=== PATIENT | female | born 1980 | race Caucasian/White ===

== ENCOUNTER 2017-08-06 09:08 | Emergency (ER) | payer OTHER ==
--- NOTE | 2017-08-06 09:36 | ER Document Report ---
ED Medical Screen (RME) - General Chief Complaint: Irregular Pulse Stated Complaint: TUNNEL VISION Time Seen by Provider: 08/06/17 09:28 Notes: pt has near syncope/palp. pulse and heart exam are remarkable for irreg rhythm. pt taken to monitored room. TRAVEL OUTSIDE OF THE [place] IN LAST 30 DAYS: No - Related Data Allergies/Adverse Reactions: No Known Allergies Allergy (Verified 12/24/16 11:33) Past Medical History - Social History Chew tobacco use (# tins/day): No Frequency of alcohol use: None Drug Abuse: None - Past Medical History Cardiac Medical History: Denies: Hx Heart Attack, Hx Hypertension Pulmonary Medical History: Denies: Hx Asthma, Hx Tuberculosis Neurological Medical History: Denies: Hx Cerebrovascular Accident, Hx Seizures Renal/ Medical History: Denies: Hx Peritoneal Dialysis GI Medical History: Denies: Hx Hepatitis, Hx Hiatal Hernia, Hx Ulcer Musculoskeltal Medical History: Infectious Medical History: Denies: Hx Hepatitis Past Surgical History: Denies: Hx Hysterectomy, Hx Mastectomy, Hx Open Heart Surgery, Hx Pacemaker - Immunizations Hx Diphtheria, Pertussis, Tetanus Vaccination: Yes Physical Exam - Vital signs Vitals: Temp Pulse Resp BP Pulse Ox 98.8 F 71 15 130/97 H 96 08/06/17 09:16 08/06/17 09:16 08/06/17 09:16 08/06/17 09:16 08/06/17 09:16 Course - Vital Signs Vital signs: Temp Pulse Resp BP Pulse Ox 98.8 F 71 15 130/97 H 96 08/06/17 09:16 08/06/17 09:16 08/06/17 09:16 08/06/17 09:16 08/06/17 09:16
[2017-08-06 10:29] LABS: ABSOLUTE BASOPHILS # (AUTO) 0.1 10^3/uL (0.0-0.2); ABSOLUTE EOSINOPHILS # (AUTO) 0.5 10^3/uL (0.0-0.6); ABSOLUTE MONOCYTES (AUTO) 0.9 10^3/uL (0.1-1.4); ABSOLUTE NEUT (AUTO) 4.5 10^3/uL (1.7-8.2); BASOPHILS % (AUTO) 0.9 % (0-2); EOSINOPHILS % (AUTO) 5.3 % (0-6); HEMATOCRIT 40.5 % (36.0-47.0); HGB HCT DIFFERENCE 1.5; LYMPHOCYTES % (AUTO) 33.4 % (13-45); MEAN CORPUSCULAR HEMOGLOBIN 28.4 pg (27.0-33.4); MEAN CORPUSCULAR HGB CONC 34.7 g/dL (32.0-36.0); MEAN CORPUSCULAR VOLUME 82 fl (80-97); MONOCYTES % (AUTO) 9.6 % (3-13); RED BLOOD COUNT 4.93 10^6/uL (3.72-5.28); RED CELL DISTRIBUTION WIDTH 13.4 % (11.5-14.0); SEGMENTED NEUTROPHILS % (AUTO) 50.8 % (42-78)
[2017-08-06 10:44] LABS: APPEARANCE,URINE SLIGHTLY-CLOUDY; BILIRUBIN,URINE NEGATIVE (NEGATIVE); GLUCOSE, URINE NEGATIVE (NEGATIVE); KETONES,URINE NEGATIVE (NEGATIVE); LEUKOCYTE ESTERASE,URINE SMALL (NEGATIVE); NITRITE,URINE NEGATIVE (NEGATIVE); PROTEIN,URINE NEGATIVE (NEGATIVE); URINE SPECIFIC GRAVITY 1.018; UROBILINOGEN,URINE NEGATIVE mg/dL (<2.0)
[2017-08-06 10:55] LABS: URINE BARBITURATES SCREEN NEGATIVE; URINE METHADONE SCREEN NEGATIVE; URINE OPIATES LOW NEGATIVE; URINE PHENCYCLIDINE SCREEN NEGATIVE
[2017-08-06] MEDS ORDERED: LIDOCAINE HCL/D5W/PF 2,000 MG/250 ML RTUINJ IV ONE (11:11)
[2017-08-06 11:13] LABS: ALANINE AMINOTRANSFERASE 35 U/L (9-52); ALBUMIN 3.9 g/dL (3.5-5.0); ALKALINE PHOSPHATASE 62 U/L (38-126); ANION GAP 11 (5-19); ASPARTATE AMINO TRANSFERASE 23 U/L (14-36); BILIRUBIN,DIRECT 0.2 mg/dL (0.0-0.4); BILIRUBIN,TOTAL 0.7 mg/dL (0.2-1.3); BLOOD UREA NITROGEN 16 mg/dL (7-20); CALCIUM 9.7 mg/dL (8.4-10.2); CARBON DIOXIDE 25 mmol/L (22-30); CHLORIDE 106 mmol/L (98-107); CREATININE RESULT 0.71 mg/dL (0.52-1.25); GLUCOSE 88 mg/dL (75-110); POTASSIUM 4.4 mmol/L (3.6-5.0); SODIUM 141.7 mmol/L (137-145); TOTAL PROTEIN 6.6 g/dL (6.3-8.2)
[2017-08-06] MEDS: LIDOCAINE IV PRN ×2 (11:27→11:28)
[2017-08-06] MEDS: DEXTROSE IV PRN ×2 (11:27→11:28)
--- NOTE | 2017-08-06 11:32 | RADIOLOGY REPORT (SQ) ---
EXAM DESCRIPTION: CHEST SINGLE VIEW COMPLETED DATE/TIME: 08/06/2017 11:24 am REASON FOR STUDY: cp COMPARISON: None. EXAM PARAMETERS: NUMBER OF VIEWS: One view. TECHNIQUE: Single frontal radiographic view of the chest acquired. RADIATION DOSE: NA LIMITATIONS: None. FINDINGS: LUNGS AND PLEURA: No opacities, masses or pneumothorax. No pleural effusion. MEDIASTINUM AND HILAR STRUCTURES: No masses. Contour normal. HEART AND VASCULAR STRUCTURES: Heart normal in size. Normal vasculature. BONES: No acute findings. HARDWARE: Defibrillator pads over the chest. OTHER: No other significant finding. IMPRESSION: NO ACUTE RADIOGRAPHIC FINDING IN THE CHEST. TECHNICAL DOCUMENTATION: JOB ID: [id number]
[2017-08-06 11:44] LABS: THYROID STIMULATING HORMONE 2.3 uIU/mL (0.47-4.68)
[2017-08-06 12:28] VITALS: BP 118/88
--- NOTE | 2017-08-06 14:18 | ER Document Report ---
ED General - General Chief Complaint: Irregular Pulse Stated Complaint: TUNNEL VISION Time Seen by Provider: 08/06/17 09:28 TRAVEL OUTSIDE OF THE [place] IN LAST 30 DAYS: No - HPI Patient complains to provider of: Near syncope with palpitations Notes: Patient states 24 hour period of multiple episodes of near syncope with palpitations. Patient states no medical issues denies any pain denies any fevers chills nausea vomiting diarrhea. Patient denies any recent travel recent antibiotics. Patient states varying times of these episodes and varying duration. Patient is unaware of any exacerbating factors. Patient states spontaneously occur and relieve . - Related Data Allergies/Adverse Reactions: No Known Allergies Allergy (Verified 12/24/16 11:33) Home Medications: Current Home Medications No Home Medications 08/06/17 [History] Past Medical History - Social History Smoking Status: Never Smoker Chew tobacco use (# tins/day): No Frequency of alcohol use: None Drug Abuse: None Family History: None Patient has suicidal ideation: No Patient has homicidal ideation: No - Past Medical History Cardiac Medical History: Denies: Hx Heart Attack, Hx Hypertension Pulmonary Medical History: Denies: Hx Asthma, Hx Tuberculosis Neurological Medical History: Denies: Hx Cerebrovascular Accident, Hx Seizures Renal/ Medical History: Denies: Hx Peritoneal Dialysis GI Medical History: Denies: Hx Hepatitis, Hx Hiatal Hernia, Hx Ulcer Musculoskeltal Medical History: Infectious Medical History: Denies: Hx Hepatitis Past Surgical History: Denies: Hx Hysterectomy, Hx Mastectomy, Hx Open Heart Surgery, Hx Pacemaker - Immunizations Hx Diphtheria, Pertussis, Tetanus Vaccination: Yes Review of Systems - Review of Systems Constitutional: No symptoms reported EENT: No symptoms reported Cardiovascular: Palpitations, Syncope Respiratory: No symptoms reported Gastrointestinal: No symptoms reported Genitourinary: No symptoms reported Female Genitourinary: No symptoms reported Musculoskeletal: No symptoms reported Skin: No symptoms reported Hematologic/Lymphatic: No symptoms reported Neurological/Psychological: No symptoms reported -: Yes All other systems reviewed and negative Physical Exam - Vital signs Vitals: Temp Pulse Resp BP Pulse Ox 98.8 F 71 15 130/97 H 96 08/06/17 09:16 08/06/17 09:16 08/06/17 09:16 08/06/17 09:16 08/06/17 09:16 Interpretation: Normal - General General appearance: Appears well, Alert - HEENT Head: Normocephalic, Atraumatic Eyes: Normal Pupils: PERRL - Respiratory Respiratory status: No respiratory distress Chest status: Nontender Breath sounds: Normal Chest palpation: Normal - Cardiovascular Rhythm: Regular Heart sounds: Normal auscultation Murmur: No - Abdominal Inspection: Normal Distension: No distension Bowel sounds: Normal Tenderness: Nontender Organomegaly: No organomegaly - Back Back: Normal, Nontender - Extremities General upper extremity: Normal inspection, Nontender, Normal color, Normal ROM , Normal temperature General lower extremity: Normal inspection, Nontender, Normal color, Normal ROM , Normal temperature, Normal weight bearing. No: Erma's sign - Neurological Neuro grossly intact: Yes Cognition: Normal Orientation: AAOx4 Meryl Coma Scale Eye Opening: Spontaneous Villalba Coma Scale Verbal: Oriented Meryl Coma Scale Motor: Obeys Commands Meryl Coma Scale Total: 15 Speech: Normal Motor strength normal: LUE, RUE, LLE, RLE Sensory: Normal - Psychological Associated symptoms: Normal affect, Normal mood - Skin Skin Temperature: Warm Skin Moisture: Dry Skin Color: Normal Course - Re-evaluation Re-evalutation: 08/06/17 14:16 During evaluation here in ER patient had 30 sec run of ventricular tachycardia with symptoms of near syncope. Unfortunately this was unable to be captured on a EKG. Some occult on the monitor. Patient's initial EKG only showed random PVCs. Patient was placed on a lidocaine drip 1 mg/kg however prior to having a drip started patient had 2 more episodes of ventricular tachycardia. Consult our cardiology team who did eventually come down bedside and evaluate the patient however recommend transfer called [facility] however both are full and able to start the patient at this time discussed with Dr. Mccarty at violent of the cardiology team agreed to set the patient in transfer. Patient otherwise has been stable at this time laboratory findings did not show any reversible cause of arrhythmia. We will continue to monitor little time at transport. 08/06/17 15:01 Stable for transfer at this time no further episodes of ventricular tachycardia - Vital Signs Vital signs: Temp Pulse Resp BP Pulse Ox 98.8 F 71 15 118/88 H 99 08/06/17 09:16 08/06/17 09:16 08/06/17 14:15 08/06/17 14:15 08/06/17 14:15 - Laboratory Result Diagrams: 08/06/17 10:05 08/06/17 10:40 Laboratory results interpreted by me: 08/06/17 10:20 Ur Leukocyte Esterase SMALL H Critical Care Note - Critical Care Note Total time excluding time spent on procedures (mins): 60 Comments: Multiple evaluation for patient with ventricular tachycardia Discharge - Discharge Clinical Impression: Nonsustained ventricular tachycardia Syncope Qualifiers: Syncope type: unspecified Qualified Code(s): R55 - Syncope and collapse Condition: Good Disposition: [facility]
--- NOTE | 2017-08-06 22:22 | PDOC CONSULTATION ---
Consultation Consult Date: 08/06/17 Attending physician:: HARMAN BREWSTER Consult reason:: Ventricular tachycardia History of Present Illness Admission Date/PCP: Consultation for August 06, 2017 Patient complains of: Near syncope and palpitations History of Present Illness: ALBINA LICEA is a 37 year old female states 24 hour period of multiple episodes of near syncope with palpitations. Patient states no medical issues denies any pain denies any fevers chills nausea vomiting diarrhea. Patient denies any recent travel recent antibiotics. Patient states varying times of these episodes and varying duration. Patient is unaware of any exacerbating factors. Patient states spontaneously occur and relieve. Patient denied any prior history of sustained palpitations, syncope, near syncope. Patient denied any family history of premature coronary artery disease or sudden cardiac . Patient denied any illicit drug abuse nor smoking. Patient has been somewhat overworked. She does sleep poorly and does have a history of snoring. She has some daytime fatigue and tiredness.. Past Medical History Cardiac Medical History: Denies: Myocardial Infarction, Hypertension Pulmonary Medical History: Denies: Asthma, Tuberculosis Neurological Medical History: Denies: Seizures GI Medical History: Denies: Hepatitis, Hiatal Hernia Musculoskeltal Medical History: Hematology: Denies: Anemia, Sickle Cell Disease Past Surgical History Past Surgical History: Denies: Amputation, Hysterectomy, Mastectomy, Pacemaker Social History Information Source: Patient Smoking Status: Never Smoker Hx Recreational Drug Use: No Hx Prescription Drug Abuse: No - Advance Directive Resuscitation Status: Full Code Surrogate healthcare decision maker:: Patient's Family History Family History: None Parental Family History Reviewed: Yes Children Family History Reviewed: Yes Sibling(s) Family History Reviewed.: Yes - Negative for premature coronary artery disease or sudden cardiac in the family amongst first degree relatives. Medication/Allergy Home Medications: No Home Medications 08/06/17 Allergies/Adverse Reactions: No Known Allergies Allergy (Verified 12/24/16 11:33) Review of Systems Review of Systems: Please see history of present illness and past medical history as wall. Constitutional: No fever or chills reported. Head : No recent chronic headaches, recent head injury. Eyes: No recent eye pain, diplopia, redness, discharge, acute visual changes. Ears: No recent chronic ear pain, acute hearing loss, ear discharge. Oral cavity: No recent ulcerations, bleeding, oral cavity discomfort. Neck: No recent acute neck pain reported. Hematologic: No recent easy bruising or bleeding or hematologic malignancy reported. Lymphatic: No recent lymphatic malignancy, chronic lymphadenopathy reported yet Cardiovascular system review: See history of present illness. Respiratory system review: No recent chronic cough, hemoptysis, blood clots in the lungs reported. Mild Shortness of breath on exertion Gastrointestinal system review: Negative for any recent acute or chronic abdominal pain, hematemesis, melena, recent change in bowel habits. Genitourinary system review: No recent acute or chronic hematuria, flank pain, UTI etc. reported. Skin system review: Negative for any recent abnormal bruising, no rash, no pruritus reported. Neurologic: No prior history of strokes, mini strokes, seizure disorder. Psychologic: No history of major psychosis or major depression reported. Musculoskeletal: Minor aches and pains reported. No acute joint swelling reported. Endocrine: No recent polyuria, polydipsia, recent heat or cold intolerance. Patient does have history of snoring Physical Exam Vital Signs: Temp Pulse Resp BP Pulse Ox 98.8 F 71 15 118/88 H 99 08/06/17 09:16 08/06/17 09:16 08/06/17 14:15 08/06/17 14:15 08/06/17 14:15 Intake & Output 08/05/17 08/06/17 08/07/17 06:59 06:59 06:59 Weight 96.2 kg Exam: GENERAL: well-nourished and in no acute distress. Alert and oriented x3 HEAD: Atraumatic, normocephalic. EYES: Pupils equal round and reactive to light, extraocular movements intact, sclera anicteric, conjunctiva are normal. ENT: TMs normal, nares patent, oropharynx clear without exudates. Moist mucous membranes. No oral ulcerations or bleeding gums noted NECK: supple without lymphadenopathy. Trachea is central. No cervical or axillary lymphadenopathy noted. Carotids are 2+, JVD WNL LUNGS: Respiration seems nonlabored, no significant accessory muscle action noted. Breath sounds clear to auscultation bilaterally and equal noted. No wheezes rales or rhonchi noted. No significant dullness noted on percussion. CHEST: Palpation of the chest wall shows no significant chest wall tenderness. No other significant abnormalities noted. 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 ABDOMEN: Soft, no significant tenderness appreciated, normoactive bowel sounds. No guarding, no rebound. No rigidity noted . No masses appreciated. EXTREMITIES: Pedal pulses are 1-2+, no calf tenderness noted. No clubbing or cyanosis.trace to 1+ pedal edema noted NEUROLOGICAL: Focused neurological exam showed no significant neurologic deficit. Normal speech, no focal weakness appreciated. PSYCH: Normal mood, normal affect. Judgment and insight within normal limits. SKIN: No significant ecchymosis, rash, ulcerations or signs of pruritus noted. MUSCULOSKELETAL EXAM: No significant joint swelling noted. Results Laboratory Results: 08/06/17 10:05 08/06/17 10:40 08/06/17 08/06/17 08/06/17 10:05 10:05 10:05 WBC 9.0 RBC 4.93 Hgb 14.0 Hct 40.5 MCV 82 MCH 28.4 MCHC 34.7 RDW 13.4 Plt Count 244 Seg Neutrophils % 50.8 Lymphocytes % 33.4 Monocytes % 9.6 Eosinophils % 5.3 Basophils % 0.9 Absolute Neutrophils 4.5 Absolute Lymphocytes 3.0 Absolute Monocytes 0.9 Absolute Eosinophils 0.5 Absolute Basophils 0.1 Sodium Cancelled Potassium Cancelled Chloride Cancelled Carbon Dioxide Cancelled Anion Gap Cancelled BUN Cancelled Creatinine Cancelled Est GFR ( Amer) Cancelled Est GFR (Non-Af Amer) Cancelled Glucose Cancelled Calcium Cancelled Magnesium Cancelled Total Bilirubin Cancelled AST Cancelled ALT Cancelled Alkaline Phosphatase Cancelled Total Protein Cancelled Albumin Cancelled TSH Cancelled Free T4 Cancelled Urine Color Urine Appearance Urine pH Ur Specific [place] Urine Protein Urine Glucose (UA) Urine Ketones Urine Blood Urine Nitrite Ur Leukocyte Esterase Urine WBC (Auto) Urine RBC (Auto) 08/06/17 08/06/17 08/06/17 10:20 10:40 10:40 WBC RBC Hgb Hct MCV MCH MCHC RDW Plt Count Seg Neutrophils % Lymphocytes % Monocytes % Eosinophils % Basophils % Absolute Neutrophils Absolute Lymphocytes Absolute Monocytes Absolute Eosinophils Absolute Basophils Sodium 141.7 Potassium 4.4 Chloride 106 Carbon Dioxide 25 Anion Gap 11 BUN 16 Creatinine 0.71 Est GFR ( Amer) > 60 Est GFR (Non-Af Amer) > 60 Glucose 88 Calcium 9.7 Magnesium 2.0 Total Bilirubin 0.7 AST 23 ALT 35 Alkaline Phosphatase 62 Total Protein 6.6 Albumin 3.9 TSH 2.30 Free T4 0.97 Urine Color YELLOW Urine Appearance SLIGHTLY-CLOUDY Urine pH 7.0 Ur Specific [place] 1.018 Urine Protein NEGATIVE Urine Glucose (UA) NEGATIVE Urine Ketones NEGATIVE Urine Blood NEGATIVE Urine Nitrite NEGATIVE Ur Leukocyte Esterase SMALL H Urine WBC (Auto) 1 Urine RBC (Auto) 2 08/06/17 10:05 Troponin I < 0.012 EKG Comments: Telemetry strips noted showed wide-complex tachycardia, most consistent with ventricular tachycardia. Twelve-lead EKG shows sinus rhythm, no acute ST-T wave changes noted. No delta wave or epsilon waves noted. No evidence of Brugada syndrome Impressions: Chest X-Ray 08/06/17 11:08 IMPRESSION: NO ACUTE RADIOGRAPHIC FINDING IN THE CHEST. Assessment & Plan - Diagnosis (1) Nonsustained ventricular tachycardia Is this a current diagnosis for this admission?: Yes (2) Syncope Qualifiers: Syncope type: unspecified Qualified Code(s): R55 - Syncope and collapse Is this a current diagnosis for this admission?: Yes (3) Snoring Is this a current diagnosis for this admission?: Yes - Notes Notes: Ventricular tachycardia: This was associated with near syncope. Therefore by definition is sustained. Patient started on lidocaine drip which seems to have settled episodes. Discussed that based on my evaluation and EKG as well as rhythm strip, transferred to tertiary care for further evaluation and electrophysiological studies indicated. Patient on waiting list to be transferred either to [facility] or to [facility]. Syncope/near syncope: This is certainly related to ventricular tachycardia. This was noted in the ER. Patient was clearly symptomatic. Snoring discussed that underlying sleep apnea may need to be evaluated for. Discussed association of sleep apnea with cardiac dysrhythmia. - Time Time Spent: 30 to 50 Minutes - CODE STATUS was discussed, patient remains full code. Surrogate decision-maker patient's . Multiple medical problems were addressed. More than 50% of the time spent coordinating care, discussing management plans with involved caregivers. Management plans discussed with involved personnels. Medical decision making was of moderate to high complexity , patient's has multiple comorbidities. Medications reviewed and adjusted accordingly: Yes
--- NOTE | 2017-08-06 23:12 | EKG REPORT ---
SEVERITY:- NORMAL ECG - SINUS RHYTHM : Confirmed by: Michael Tony 06-Aug-2017 23:11:55
--- NOTE | 2017-08-07 09:08 | EKG REPORT ---
SEVERITY:- ABNORMAL ECG - SINUS RHYTHM VENTRICULAR TRIGEMINY : Confirmed by: Michael Tony 07-Aug-2017 09:07:20
== END 2017-08-06 15:00 | disposition short-term general hospital (02) ==
LOC: ER 09:08
DX: I47.2 Ventricular tachycardia (principal); R55 Syncope and collapse; R00.2 Palpitations
CPT/HCPCS: 93005; 99291; 36415; 84439; 84702; 83735; 84443; 85025; 80053; 81001; 84484; 80307; 85379; 71010; 93010; J2001

== ENCOUNTER 2019-03-30 07:54 | Emergency (ER) | payer OTHER ==
[2019-03-30 08:02] VITALS: BP 127/80
[2019-03-30 09:14] LABS: APPEARANCE,URINE SLIGHTLY-CLOUDY; BILIRUBIN,URINE NEGATIVE (NEGATIVE); COLOR,URINE YELLOW; GLUCOSE, URINE NEGATIVE (NEGATIVE); KETONES,URINE NEGATIVE (NEGATIVE); LEUKOCYTE ESTERASE,URINE NEGATIVE (NEGATIVE); NITRITE,URINE NEGATIVE (NEGATIVE); PROTEIN,URINE NEGATIVE (NEGATIVE); URINE SPECIFIC GRAVITY 1.024; UROBILINOGEN,URINE NEGATIVE mg/dL (<2.0)
[2019-03-30 09:15] LABS: ABSOLUTE BASOPHILS # (AUTO) 0.1 10^3/uL (0.0-0.2); ABSOLUTE EOSINOPHILS # (AUTO) 0.3 10^3/uL (0.0-0.6); ABSOLUTE LYMPHOCYTES (AUTO) 2.5 10^3/uL (0.5-4.7); ABSOLUTE MONOCYTES (AUTO) 0.5 10^3/uL (0.1-1.4); EOSINOPHILS % (AUTO) 4.8 % (0-6); HEMATOCRIT 42.2 % (36.0-47.0); HEMOGLOBIN 14.1 g/dL (12.0-15.5); LYMPHOCYTES % (AUTO) 39.1 % (13-45); MEAN CORPUSCULAR HEMOGLOBIN 27.2 pg (27.0-33.4); MEAN CORPUSCULAR HGB CONC 33.4 g/dL (32.0-36.0); MEAN CORPUSCULAR VOLUME 81 fl (80-97); MONOCYTES % (AUTO) 7.5 % (3-13); PLATELET COUNT 221 10^3/uL (150-450); RED BLOOD COUNT 5.19 10^6/uL (3.72-5.28); SEGMENTED NEUTROPHILS % (AUTO) 47.6 % (42-78); TOTAL CELLS COUNTED % (AUTO) 100 %; WHITE BLOOD COUNT 6.3 10^3/uL (4.0-10.5)
--- NOTE | 2019-03-30 09:39 | ER Document Report ---
ED General - General Chief Complaint: Abdominal Pain Stated Complaint: ARM PAIN Time Seen by Provider: 03/30/19 09:21 Primary Care Provider: [facility] [Provider Group] - Follow up in 3-5 days MERLE TALBOT FNP-C [Primary Care Provider] - Follow up as needed Notes: Patient is a 38-year-old female that presents to the emergency department for chief complaint of pelvic cramping. Patient states she started having pelvic cramping this morning, and states she feels "weird" in her lower pelvis, she has an IUD in place and thinks it may have moved or shifted, she believes that the Mirena IUD is probably been in there for 5 years or more she is not entirely sure. She denies having any bleeding or abnormal vaginal discharge. Denies any recent fevers, chills, nausea, vomiting, upper abdominal pain, dysuria, hematuria. No other complaints at this time. Patient also notes she had an episode where her left hand when holding a coffee cup got somewhat numb and weak, and improved and did not happen today, she states she still feels some numbness in her left index finger, but otherwise denies any other complaints. Denies any neck pain or injury. Past Medical History: Denies chronic medical condition Past Surgical History: Appendectomy, IUD placement Social History: Denies tobacco, alcohol or drug use. Family History: Reviewed and noncontributory for presenting illness Allergies: Reviewed, see documented allergy list. REVIEW OF SYSTEMS: Other than noted above, the 12 point review of systems was reviewed with the patient and were negative, all pertinent findings are included in the HPI. PHYSICAL EXAMINATION: Vital signs reviewed, nursing noted reviewed. GENERAL: Well-appearing, well-nourished and in no acute distress. HEAD: Atraumatic, normocephalic. EYES: Eyes appear normal, extraocular movements intact, sclera anicteric, conjunctiva are normal. ENT: nares patent, oropharynx clear without exudates. Moist mucous membranes. NECK: Normal range of motion, supple without lymphadenopathy LUNGS: Breath sounds clear to auscultation bilaterally and equal. No wheezes rales or rhonchi. HEART: Regular rate and rhythm without murmurs ABDOMEN: Soft, nontender, normoactive bowel sounds. No rebound, guarding, or rigidity. No masses appreciated. Pelvic Exam: With a strategic business development present the exam was explained to the patient and patient agreed to proceed with exam. On exam, no external lesions or abnormalities noted. Internal speculum exam demonstrated 2 IUD strings are present, the cervical os did appear somewhat erythematous, with some clear thick drainage, mild irritation to the cervix itself, patient tolerated exam well EXTREMITIES: Nontender, good range of motion, no pitting or edema. NEUROLOGICAL: Moves all extremities spontaneously, patient's muscular motor strength is +5/5 with escalator mechanic strength, abduction, abduction of the fingers, extension of the wrist, flexion of the elbow, she has somewhat decreased sensation with light touch to the second digit of the left hand, the rest of her exam is otherwise unremarkable, normal and equal sharp sensation in all digits. Equivocal Tinel sign of the left hand. The rest the patient neuro exam is unremarkable PSYCH: Normal mood, normal affect. SKIN: Warm, Dry, normal turgor, no rashes or lesions noted on exposed skin TRAVEL OUTSIDE OF THE [place] IN LAST 30 DAYS: No - Related Data Allergies/Adverse Reactions: No Known Allergies Allergy (Verified 03/30/19 07:59) Past Medical History - Social History Smoking Status: Unknown if Ever Smoked Family History: None Patient has suicidal ideation: No Patient has homicidal ideation: No - Past Medical History Cardiac Medical History: Denies: Hx Heart Attack, Hx Hypertension Pulmonary Medical History: Denies: Hx Asthma, Hx Tuberculosis Neurological Medical History: Denies: Hx Cerebrovascular Accident, Hx Seizures Renal/ Medical History: Denies: Hx Peritoneal Dialysis GI Medical History: Denies: Hx Hepatitis, Hx Hiatal Hernia, Hx Ulcer Musculoskeletal Medical History: Infectious Medical History: Denies: Hx Hepatitis Past Surgical History: Denies: Hx Hysterectomy, Hx Mastectomy, Hx Open Heart Surgery, Hx Pacemaker - Immunizations Hx Diphtheria, Pertussis, Tetanus Vaccination: Yes Physical Exam - Vital signs Vitals: Temp Pulse Resp BP Pulse Ox 97.6 F 77 16 127/80 H 96 03/30/19 08:00 03/30/19 08:00 03/30/19 08:00 03/30/19 08:00 03/30/19 08:00 Course - Re-evaluation Re-evalutation: Patient seen and examined vital signs reviewed. Patient was evaluated and treated as appropriate for the patient's presenting symptoms and complaint, with consideration of any critical or life threatening conditions that may be associated with their obtained history and exam as noted above. Patient was treated with IUD removal PROCEDURE: IUD removal Risks and benefits of the procedure were described to the patient, including po tential fracture of the IUD, bleeding, and uterine injury, and after obtaining verbal consent, patient agreed to proceed to remove her IUD. Using alligator forceps, the IUD strings were held onto, and with gentle traction, the IUD was removed successfully, and was completely intact, and patient tolerated well. The patient was re-evaluated and was stable and improved Evaluation was most consistent with pelvic cramping, hand paresthesias Plan of care was discussed with the patient at this point, after careful consideration I feel that that patient can be discharged from the emergency department, the patient was educated treatments and reasons to return to the emergency department based on their presumed diagnosis as noted above, they were advised to followup with a primary care physician in 2-3 days. Patient was agreeable to plan of care. *Note is created using voice recognition software and may contain spelling, syntax or grammatical errors. - Vital Signs Vital signs: Temp Pulse Resp BP Pulse Ox 97.6 F 77 16 127/80 H 96 03/30/19 08:00 03/30/19 08:00 03/30/19 08:00 03/30/19 08:00 03/30/19 08:00 - Laboratory Result Diagrams: 03/30/19 09:00 03/30/19 09:00 Laboratory results interpreted by me: 03/30/19 03/30/19 09:00 09:00 Chloride 109 H Urine Blood SMALL H Discharge - Discharge Clinical Impression: Pelvic cramping, Encounter for IUD removal, Paresthesia Condition: Stable Disposition: HOME, SELF-CARE Instructions: Pelvic Pain ([facility]) Additional Instructions: Please follow-up with [employer]EC[employer] DIRECTOR and complete the course of antibiotics prescribed. Prescriptions: RX: Doxycycline Hyclate 100 mg PO BID #14 capsule Referrals: MERLE TALBOT FNP-C [Primary Care Provider] - Follow up as needed [facility] [Provider Group] - Follow up in 3-5 days
[2019-03-30 09:48] LABS: ALANINE AMINOTRANSFERASE 21 U/L (9-52); ALBUMIN 3.8 g/dL (3.5-5.0); ALKALINE PHOSPHATASE 59 U/L (38-126); ANION GAP 6 (5-19); ASPARTATE AMINO TRANSFERASE 22 U/L (14-36); BILIRUBIN,DIRECT 0.2 mg/dL (0.0-0.4); BILIRUBIN,TOTAL 0.6 mg/dL (0.2-1.3); BLOOD UREA NITROGEN 11 mg/dL (7-20); CALCIUM 9.4 mg/dL (8.4-10.2); CARBON DIOXIDE 25 mmol/L (22-30); CHLORIDE 109 mmol/L (98-107); GLUCOSE 91 mg/dL (75-110); LIPASE 65.4 U/L (23-300); POTASSIUM 4.2 mmol/L (3.6-5.0); SODIUM 140.1 mmol/L (137-145); TOTAL PROTEIN 6.7 g/dL (6.3-8.2)
== END 2019-03-30 10:39 | disposition home or self-care (01) ==
LOC: ER 07:54
DX: Z30.432 Encounter for removal of intrauterine contraceptive device (principal); R10.2 Pelvic and perineal pain; R20.2 Paresthesia of skin
CPT/HCPCS: 36415; 80053; 81001; 83690; 85025; 99284